=== PATIENT | female | born 1965 | race Caucasian/White ===

== ENCOUNTER 2017-03-04 20:35 | Emergency (ER) | payer SELFPAY ==
[2017-03-04] MEDS ORDERED: Famotidine 20 MG TAB ONE (21:03)
[2017-03-04] MEDS ORDERED: predniSONE 20 MG TAB ONE (21:03)
== END 2017-03-04 21:32 | disposition home or self-care (01) ==
LOC: SCSER 20:35
DX: T78.40XA Allergy, unspecified, initial encounter (principal)
CPT/HCPCS: 99283; J7506

== ENCOUNTER 2023-12-05 11:47 | Outpatient (CLI) | payer OTHER | END 2023-12-05 11:48 | disposition home or self-care (01) | LOC: BICULT 11:47 | PROVIDERS: ATTEND Family Medicine | DX: N63.15 Unspecified lump in the right breast, overlapping quadrants (principal) ==

== ENCOUNTER 2024-03-29 13:55 | Outpatient (CLI) | payer OTHER | END 2024-03-29 13:56 | disposition home or self-care (01) | LOC: BICCT 13:55 | PROVIDERS: ATTEND Otolaryngology Plastic Surgery within the Head & Neck | DX: J34.2 Deviated nasal septum (principal); J34.1 Cyst and mucocele of nose and nasal sinus ==